=== PATIENT | female | born 1970 | race Caucasian/White ===

== ENCOUNTER 2022-05-05 08:37 | Inpatient (IN) | payer SELFPAY ==
[~2022-05-05] VITALS: Ht 170.2 cm; Wt 82.1 kg
[2022-05-05] MEDS ORDERED: SODIUM CHLORIDE FLUSH 10 ML SYR IV PRN (09:00)
[2022-05-05 09:12] LABS: BASOPHILS % 0.3 % (0.0-1.0); EOSINOPHILS % 0.2 % (0.0-6.0); HEMOGLOBIN 15.2 g/dL (12.0-16.0); LYMPHOCYTES # (AUTO) 0.5 (1.0-3.2); LYMPHOCYTES % 7.9 % (18.0-39.1); MEAN CORPUSCULAR HEMOGLOBIN 30.8 pg (28-32); MEAN CORPUSCULAR HGB CONC 31.7 g/dL (31-35); MEAN CORPUSCULAR VOLUME 97.4 fL (81-99); MONOCYTES # (AUTO) 0.7 (0.2-0.8); MONOCYTES % 12.1 % (4.4-11.3); NEUTROPHILS # (AUTO) 4.8 (2.1-6.9); NEUTROPHILS % 79.2 % (38.7-80.0); PLATELET COUNT 195 x10e3/uL (140-360); RED BLOOD COUNT 4.93 x10e6/uL (3.6-5.1)
[2022-05-05 09:30] LABS: ALANINE AMINOTRANSFERASE 25 IU/L (0-55); ALBUMIN 4.1 g/dL (3.5-5.0); ALBUMIN/GLOBULIN RATIO 1.2 (0.8-2.0); ALKALINE PHOSPHATASE 67 IU/L (40-150); ANION GAP 15.9 mmol/L (8-16); BLOOD UREA NITROGEN 13 mg/dL (7-26); BUN/CREATININE RATIO 15 (6-25); CALCIUM 9.6 mg/dL (8.4-10.2); CARBON DIOXIDE 22 mmol/L (22-29); CHLORIDE 107 mmol/L (98-107); CREATININE, SERUM 0.88 mg/dL (0.57-1.11); GLUCOSE 107 mg/dL (74-118); POTASSIUM 3.9 mmol/L (3.5-5.1); SODIUM 141 mmol/L (136-145)
[2022-05-05] MEDS ORDERED: ASPIRIN 81 MG CHEW TAB PO ONE ×2 (11:30)
[2022-05-05] MEDS ORDERED: ACETAMINOPHEN 325 MG TAB PO ONE (12:15)
[2022-05-05 14:48] VITALS: BP 112/71
[2022-05-05] MEDS: Morphine 2mg Syringe 2 MG/ML SYR IV PRN ×2 (14:53→20:58)
[2022-05-05] MEDS: ONDANSETRON HCL INJ 2MG/ML 2ML 2 MG/ML VIAL IV PRN ×2 (14:54→20:58)
[2022-05-05 15:46] VITALS: BP 126/78
[2022-05-05 15:58] VITALS: BP 112/71
[2022-05-05] MEDS: METOPROLOL TARTRATE 25 MG TAB PO SCH (17:29)
[2022-05-05 17:34] LABS: CHOL/HDL RATIO 2.9 (3.0-3.6)
[2022-05-05 17:54] LABS: THYROID STIMULATING HORMONE 3.319 uIU/mL (0.350-4.940)
[2022-05-05 18:14] LABS: CREATINE KINASE 56 IU/L (29-168)
[2022-05-05 20:37] VITALS: BP 119/86
[2022-05-05 20:41] VITALS: BP 119/86
[2022-05-05] MEDS ORDERED: ACETAMINOPHEN 325 MG TAB PO PRN (20:45)
[2022-05-06] VITALS (8 sets, daily range): BP systolic 114–125; BP diastolic 69–90
[2022-05-06] MEDS: Morphine 2mg Syringe 2 MG/ML SYR IV PRN ×3 (04:51→18:06)
[2022-05-06] MEDS: ONDANSETRON HCL INJ 2MG/ML 2ML 2 MG/ML VIAL IV PRN (04:51)
[2022-05-06 06:02] LABS: BASOPHILS % 0.3 % (0.0-1.0); HEMOGLOBIN 14.6 g/dL (12.0-16.0); LYMPHOCYTES # (AUTO) 0.9 (1.0-3.2); LYMPHOCYTES % 14.9 % (18.0-39.1); MEAN CORPUSCULAR HEMOGLOBIN 31.1 pg (28-32); MEAN CORPUSCULAR HGB CONC 33.2 g/dL (31-35); MEAN CORPUSCULAR VOLUME 93.6 fL (81-99); MONOCYTES # (AUTO) 0.7 (0.2-0.8); MONOCYTES % 12.6 % (4.4-11.3); NEUTROPHILS # (AUTO) 4.2 (2.1-6.9); NEUTROPHILS % 71.7 % (38.7-80.0); PLATELET COUNT 164 x10e3/uL (140-360); RED CELL DISTRIBUTION WIDTH 14.5 % (11.7-14.4)
[2022-05-06 06:33] LABS: ALBUMIN 3.6 g/dL (3.5-5.0); ALBUMIN/GLOBULIN RATIO 1.1 (0.8-2.0); CALCIUM 8.5 mg/dL (8.4-10.2); CREATININE, SERUM 0.88 mg/dL (0.57-1.11)
[2022-05-06 07:07] LABS: CREATINE KINASE 69 IU/L (29-168)
[2022-05-06] MEDS: METOPROLOL TARTRATE 25 MG TAB PO SCH ×2 (10:03→18:03)
[2022-05-06 11:17] LABS: BASOPHILS % 0.4 % (0.0-1.0); HEMATOCRIT 48.7 % (34.2-44.1); HEMOGLOBIN 15.1 g/dL (12.0-16.0); LYMPHOCYTES % 20.7 % (18.0-39.1); MEAN CORPUSCULAR HEMOGLOBIN 30.9 pg (28-32); MEAN CORPUSCULAR VOLUME 99.8 fL (81-99); MONOCYTES # (AUTO) 0.6 (0.2-0.8); MONOCYTES % 12.9 % (4.4-11.3); NEUTROPHILS # (AUTO) 3.1 (2.1-6.9); NEUTROPHILS % 65.8 % (38.7-80.0); PLATELET COUNT 163 x10e3/uL (140-360); RED BLOOD COUNT 4.88 x10e6/uL (3.6-5.1); RED CELL DISTRIBUTION WIDTH 14.6 % (11.7-14.4)
[2022-05-06 14:17] LABS: CREATINE KINASE 70 IU/L (29-168)
[2022-05-06] MEDS ORDERED: ENOXAPARIN 30 MG/0.3 ML SYR SC ONE (19:45)
[2022-05-07] VITALS (7 sets, daily range): BP systolic 105–111; BP diastolic 68–91
[2022-05-07] MEDS: Morphine 2mg Syringe 2 MG/ML SYR IV PRN ×4 (00:11→22:28)
[2022-05-07 06:22] LABS: CLARITY,URINE CLOUDY (CLEAR); COLOR,URINE YELLOW (YELLOW); KETONES,URINE 1+ (NEGATIVE); LEUKOCYTE ESTERASE ,URINE NEGATIVE (NEGATIVE); NITRITE,URINE NEGATIVE (NEGATIVE); PROTEIN,URINE DIPSTICK TRACE (NEGATIVE); URINE UROBILINOGEN 0.2 mg/dL (0.2 - 1)
[2022-05-07 06:32] LABS: BACTERIA,URINE MANY /HPF
[2022-05-07 06:33] LABS: EPITHELIAL CELLS,URINE MODERATE /LPF; MUCUS,URINE MODERATE (RARE)
[2022-05-07] MEDS: METOPROLOL TARTRATE 25 MG TAB PO SCH ×2 (07:37→17:11)
[2022-05-07] MEDS ORDERED: IOPAMIDOL 370 MG/ML 100 ML INFUS..BTL INJ ONE (14:37)
[2022-05-07] MEDS: CEFEPIME 2 GM in SODIUM CHLORIDE 0.9% 100 ML IV SCH (16:56)
[2022-05-07] MEDS ORDERED: SODIUM CHLORIDE 0.9% 250ML 250 ML ONE (16:56)
[2022-05-07] MEDS ORDERED: CEFEPIME 2 GM in SODIUM CHLORIDE 0.9% 100 ML IV SCH (21:00)
[2022-05-08] VITALS: BP 107/76
[2022-05-08] MEDS: CEFEPIME 2 GM in SODIUM CHLORIDE 0.9% 100 ML IV SCH ×3 (00:40→16:25)
[2022-05-08 04:00] VITALS: BP 117/57
[2022-05-08 08:00] VITALS: BP 135/84
[2022-05-08] MEDS: METOPROLOL TARTRATE 25 MG TAB PO SCH ×2 (09:34→17:00)
[2022-05-08] MEDS: Morphine 2mg Syringe 2 MG/ML SYR IV PRN (09:35)
[2022-05-08 11:30] VITALS: BP 104/65
[2022-05-08 16:00] VITALS: BP 100/54
[2022-05-08 20:00] VITALS: BP 113/81
[2022-05-09] VITALS: BP 104/90
[2022-05-09] MEDS: CEFEPIME 2 GM in SODIUM CHLORIDE 0.9% 100 ML IV SCH ×2 (01:14→09:02)
[2022-05-09] MEDS: Morphine 2mg Syringe 2 MG/ML SYR IV PRN (02:18)
[2022-05-09 04:00] VITALS: BP 110/65
[2022-05-09 06:13] LABS: BASOPHILS % 0.2 % (0.0-1.0); EOSINOPHILS % 0.2 % (0.0-6.0); HEMATOCRIT 46.2 % (34.2-44.1); HEMOGLOBIN 14.1 g/dL (12.0-16.0); LYMPHOCYTES # (AUTO) 1.7 (1.0-3.2); LYMPHOCYTES % 39.7 % (18.0-39.1); MEAN CORPUSCULAR HEMOGLOBIN 30.5 pg (28-32); MEAN CORPUSCULAR HGB CONC 30.5 g/dL (31-35); MEAN CORPUSCULAR VOLUME 99.8 fL (81-99); MONOCYTES # (AUTO) 0.4 (0.2-0.8); MONOCYTES % 9.8 % (4.4-11.3); NEUTROPHILS # (AUTO) 2.1 (2.1-6.9); NEUTROPHILS % 49.9 % (38.7-80.0); PLATELET COUNT 137 x10e3/uL (140-360); RED BLOOD COUNT 4.63 x10e6/uL (3.6-5.1); RED CELL DISTRIBUTION WIDTH 13.8 % (11.7-14.4)
[2022-05-09 06:31] LABS: ANION GAP 13.6 mmol/L (8-16); CALCIUM 8.3 mg/dL (8.4-10.2); CREATININE, SERUM 0.78 mg/dL (0.57-1.11); POTASSIUM 3.6 mmol/L (3.5-5.1)
[2022-05-09 08:12] VITALS: BP 126/76
[2022-05-09 08:55] VITALS: BP 126/76
[2022-05-09] MEDS: METOPROLOL TARTRATE 25 MG TAB PO SCH (09:03)
[2022-05-09 13:03] VITALS: BP 116/68
[2022-05-09] MEDS ORDERED: ONDANSETRON HCL 4 MG ORAL DISINTEGRATING TAB PO PRN (16:30)
== END 2022-05-09 15:41 | disposition home or self-care (01) | DRG 310 ==
LOC: ER 08:40 → ERHOLD 11:29 → MED/SURG3 13:13 → OBSVTOIN 05-06 16:07
PROVIDERS: ADMIT Family Medicine; ATTEND Family Medicine
DX: R00.2 Palpitations (principal); R50.9 Fever, unspecified; R07.9 Chest pain, unspecified; C53.9 Malignant neoplasm of cervix uteri, unspecified; Z20.822 Contact with and (suspected) exposure to COVID-19; Z78.0 Asymptomatic menopausal state
CPT/HCPCS: 36415; 71046; 71260; 74177; 80048; 80053; 80061; 81001; 82550; 82553; 83605; 83880; 84443; 84484; 84702; 85025; 85651; 86039; 86140; 86200; 86308; 86431; 86663; 86664; 86665; 87040; 87086; 87400; 93005; 93306; 94760; 99284; G0378; J0692; J1650; J2270; J2405; J7050; Q9967